=== PATIENT | male | born 1970 | race Caucasian/White ===

== ENCOUNTER 2022-09-01 08:18 | Outpatient (REF) | payer BC, SELFPAY ==
[2022-09-01 08:29] LABS: MANUAL DIFF FLAG NO
[2022-09-01 08:47] LABS: Basophils Percent Auto 0.2 % (0-2); Eosinophils Absolute Auto 0.3 X10*3/uL (0.0-0.4); Eosinophils Percent Auto 5.4 % (0-4); Hematocrit 42.1 % (42.0-52.0); Hemoglobin 15.2 g/dl (14.0-18.0); Imm Gran Abs Auto 0.02 X10*3/uL (0.00-0.03); Imm Gran Pct Auto 0.4 % (0.0-0.4); Lymphocytes Absolute Auto 1.1 X10*3/uL (1.2-4.9); Lymphocytes Percent Auto 21.1 % (20-40); Mean Corpuscular HGB Conc 36.1 g/dl (31.0-36.0); Mean Corpuscular Volume 94.2 fL (80.0-98.0); Mean Platelet Volume 9.4 fL (9.4-12.4); Monocytes Absolute Auto 0.3 X10*3/uL (0.1-1.2); Monocytes Percent Auto 6.3 % (2-11); Neutrophils Absolute Auto 3.6 x10*3/uL (2.0-8.3); Neutrophils Percent Auto 66.6 % (45-73); Platelet Count 158 X10*3/uL (160-400); Red Blood Count 4.47 X10*6/uL (4.60-5.80); Red Cell Distribution Width 11.8 % (11.0-16.0); White Blood Count 5.4 X10*3/uL (4.8-10.8)
[2022-09-01 09:19] LABS: Anion Gap 14 (12-20); Blood Urea Nitrogen 20 mg/dL (9-16); Calcium 9.5 mg/dL (8.4-10.2); Carbon Dioxide 26 mmol/L (22-29); Chloride 103 mmol/L (96-108); Estimated Glomerular Filt Rate 51; Glucose Random 131 mg/dL (60-115); Potassium 5.1 mmol/L (3.3-5.1); Sodium 138 mmol/L (135-145)
[2022-09-03 14:46] LABS: HIV RNA PCR Qn Copies <20 DETECTED copies/mL (NOT DETECTED); HIV RNA PCR Qn Log Copies <1.30 DETECTED (NOT DETECTED)
[2022-09-05 14:42] LABS: CK-BB None Detected (None Detected); CK-MB 0 % (<5); CK-MM 100 % (95-100); Creatine Kinase,Total,Serum 105 U/L (44-196)
== END 2022-09-01 08:19 | disposition home or self-care (01) ==
LOC: HO.LAB 08:18
PROVIDERS: Visit Provider Internal Medicine
DX: B20 Human immunodeficiency virus [HIV] disease (principal)
CPT/HCPCS: 36415; 80048; 82552; 85025; 87536

== ENCOUNTER → 2022-09-11 11:24 | Outpatient (BNVA) | payer BC, SELFPAY | PROVIDERS: Visit Provider Internal Medicine | DX: B20 Human immunodeficiency virus [HIV] disease (principal) | CPT/HCPCS: 96372 ==

== ENCOUNTER → 2022-10-14 10:35 | Outpatient (BNVA) | payer BC, SELFPAY | PROVIDERS: Visit Provider Internal Medicine | DX: B20 Human immunodeficiency virus [HIV] disease (principal) | CPT/HCPCS: 96372; J0741 ==

== ENCOUNTER 2022-10-20 08:15 | Outpatient (REF) | payer BC, SELFPAY ==
[2022-10-22 14:54] LABS: HIV RNA PCR Qn Copies NOT DETECTED copies/mL (NOT DETECTED); HIV RNA PCR Qn Log Copies NOT DETECTED (NOT DETECTED)
== END 2022-10-20 08:16 | disposition home or self-care (01) ==
LOC: HO.LAB 08:15
PROVIDERS: Visit Provider Internal Medicine
DX: B20 Human immunodeficiency virus [HIV] disease (principal)
CPT/HCPCS: 36415; 87536

== ENCOUNTER → 2022-12-16 10:53 | Outpatient (BNVA) | payer BC, SELFPAY | PROVIDERS: Visit Provider Internal Medicine | DX: B20 Human immunodeficiency virus [HIV] disease (principal) | CPT/HCPCS: 96372; J0741 ==

== ENCOUNTER 2023-01-18 09:18 | Outpatient (REF) | payer BC, SELFPAY ==
[2023-01-19 13:04] LABS: Absolute CD3 Count 769 cells/uL (840-3060); Absolute CD4 Count 168 cells/uL (490-1740); Absolute CD8 Count 600 cells/uL (180-1170); Absolute Lymphocytes 990 cells/uL (850-3900); CD4 CD8 Ratio 0.28 (0.86-5.00); Percent CD3 Cells 78 % (57-85); Percent CD4 Cells 17 % (30-61); Percent CD8 Cells 61 % (12-42)
[2023-01-20 14:54] LABS: HIV RNA PCR Qn Copies NOT DETECTED copies/mL (NOT DETECTED); HIV RNA PCR Qn Log Copies NOT DETECTED (NOT DETECTED)
== END 2023-01-18 09:19 | disposition home or self-care (01) ==
LOC: HO.LAB 09:18
PROVIDERS: Visit Provider Internal Medicine
DX: B20 Human immunodeficiency virus [HIV] disease (principal)
CPT/HCPCS: 36415; 86359; 86360; 87536

== ENCOUNTER → 2023-02-17 10:51 | Outpatient (BNVA) | payer BC, SELFPAY | PROVIDERS: Visit Provider Internal Medicine ==

== ENCOUNTER → 2023-02-22 14:27 | Outpatient (BNVA) | payer BC, SELFPAY | PROVIDERS: Visit Provider Internal Medicine | DX: B20 Human immunodeficiency virus [HIV] disease (principal) | CPT/HCPCS: 96372; J0741 ==

== ENCOUNTER → 2023-04-26 12:57 | Outpatient (BNVA) | payer BC, SELFPAY | PROVIDERS: Visit Provider Internal Medicine | DX: B20 Human immunodeficiency virus [HIV] disease (principal) | CPT/HCPCS: 96372; J0741 ==

== ENCOUNTER 2023-06-28 11:23 | Outpatient (AMB) | payer BC, SELFPAY ==
[2023-06-28 11:33] VITALS: BP 140/80; PULSE 108; O2SAT 98; BMI 24.3
--- NOTE | 2023-06-28 11:33 | A.OFFVIS_ITS ---
Intake Vital Signs 06/28/23 11:33 Height 5 ft 7 in Weight 155 lb BMI 24.3 BP 140/80 H Blood Pressure Location Lt brachial Position Sitting Pulse 108 H Pulse Source Pulse Oximeter Pulse Oximetry (%) 98 Intake Visit Reasons: 4 mth.F/U,Cabenuva inj. Allergies latex [LATEX] Allergy (Unknown, Verified 06/28/23 11:34) UNK penicillin G Allergy (Unknown, Verified 06/28/23 11:34) Unknown penicillin V Allergy (Unknown, Verified 06/28/23 11:34) Hives Penicillins [PENICILLINS] Allergy (Unknown, Verified 06/28/23 11:34) HIVES Latex Adverse Reaction (Unknown, Uncoded 08/04/22 11:42) Unknown HPI 4 mth.F/U,Cabenuva inj. HPI Details He is doing well. He has no complaints. He has CD4 count of 168 and viral load undetectable on 01/18/2023. [facility] Medical History H/O osteomyelitis Insomnia Chronic renal disease, stage 3, moderately decreased glomerular filtration rate (GFR) between 30-59 mL/min/1.73 square meter Thrombocytopenia Allergic sinusitis Asthma HIV (human immunodeficiency virus infection) Review of Systems Const All systems reviewed & are unremarkable except as noted in HPI and below Physical Exam Vital Signs: Last Vital Signs Pulse 108 H 06/28/23 11:33 BP 140/80 H 06/28/23 11:33 Pulse Ox 98 06/28/23 11:33 BMI result Body Mass Index 24.3 Const General: cooperative HEENT Head: Yes normal to inspection Face and sinus: Yes normal facial exam Mouth: Normal oral and palatal mucosa present Teeth and gingiva: dentition normal Eyes General: appearance normal, both eyes and all related structures Pupils: Equal, round and reactive pupils present Resp Effort & Inspection: normal respiratory effort Cardio Rate: regular rate Rhythm: regular rhythm GI Palpation (GI): Soft to palpation and nontender General: Yes no CVA tenderness Back/Spine/Pelvis Back: no CVA tenderness Skin General skin exam: no rashes or lesions noted Neuro General: moves all extremities Cranial nerves: Yes Equal, round and reactive pupils present Extrem General: Yes normal to inspection Psych Appearance: grossly normal Assessment & Plan Assessment & Plan (1) HIV (human immunodeficiency virus infection): Comment: He received his sixth Cabenuva today. He has no complaints His viral load is undetectable in January 2023. Code(s): B20 - Human immunodeficiency virus [HIV] disease Plan: Will check viral load today. See in four months and nurse visit in two months. Orders: Orders HIV-1 RNA QN PCR Expanded 06/28/23 B20 - Human immunodeficiency virus [HIV] disease Coding Level of Care Code Est Pt Level 3 (93355) Diagnoses HIV (human immunodeficiency virus infection) B20
== END 2023-06-28 13:06 | disposition home or self-care (01) ==
LOC: HO.HID 11:23
PROVIDERS: Visit Provider Internal Medicine
DX: B20 Human immunodeficiency virus [HIV] disease (principal)
CPT/HCPCS: 99213

== ENCOUNTER → 2023-06-28 11:23 | Outpatient (BNVA) | payer BC, SELFPAY | PROVIDERS: Visit Provider Internal Medicine ==

== ENCOUNTER 2023-08-11 10:08 | Outpatient (REF) | payer BC, SELFPAY ==
[2023-08-12 11:39] LABS: Absolute CD3 Count 1210 cells/uL (840-3060); Absolute CD4 Count 304 cells/uL (490-1740); Absolute CD8 Count 913 cells/uL (180-1170); Absolute Lymphocytes 1536 cells/uL (850-3900); CD4 CD8 Ratio 0.33 (0.86-5.00); Percent CD3 Cells 79 % (57-85); Percent CD4 Cells 20 % (30-61); Percent CD8 Cells 59 % (12-42)
[2023-08-13 16:29] LABS: HIV RNA PCR Qn Copies NOT DETECTED copies/mL (NOT DETECTED); HIV RNA PCR Qn Log Copies NOT DETECTED (NOT DETECTED)
== END 2023-08-11 10:09 | disposition home or self-care (01) ==
LOC: HO.LAB 10:08
PROVIDERS: Visit Provider Internal Medicine
DX: B20 Human immunodeficiency virus [HIV] disease (principal)
CPT/HCPCS: 36415; 86359; 86360; 87536

== ENCOUNTER 2023-08-30 10:58 | Outpatient (AMB) | payer BC, SELFPAY ==
[2023-08-30 11:08] VITALS: BP 149/91; PULSE 97; O2SAT 97; BMI 24.9
--- NOTE | 2023-08-30 11:08 | MHC.OFFVIS ---
Intake Vital Signs 08/30/23 11:08 Height 5 ft 7 in Weight 159 lb BMI 24.9 BP 149/91 H Blood Pressure Location Lt brachial Position Sitting Pulse 97 Pulse Source Pulse Oximeter Pulse Oximetry (%) 97 Intake Visit Reasons: 2 mth-Cabenuva injection Allergies latex [LATEX] Allergy (Unknown, Verified 08/30/23 11:09) UNK penicillin G Allergy (Unknown, Verified 08/30/23 11:09) Unknown penicillin V Allergy (Unknown, Verified 08/30/23 11:09) Hives Penicillins [PENICILLINS] Allergy (Unknown, Verified 08/30/23 11:09) HIVES Latex Adverse Reaction (Unknown, Uncoded 08/04/22 11:42) Unknown [facility] Medical History H/O osteomyelitis Insomnia Chronic renal disease, stage 3, moderately decreased glomerular filtration rate (GFR) between 30-59 mL/min/1.73 square meter Thrombocytopenia Allergic sinusitis Asthma HIV (human immunodeficiency virus infection) Physical Exam Vital Signs: Last Vital Signs Pulse 97 08/30/23 11:08 BP 149/91 H 08/30/23 11:08 Pulse Ox 97 08/30/23 11:08 BMI result Body Mass Index 24.9 Office Meds cabotegravir ER 600 mg/3 mL-rilpivirine ER 900 mg/3mL IM suspension,ER Performing Provider: Ana Hawkins MD Performing Location: [facility] [place] [facility] Administered by: Dafne Frankel on 08/30/23 11:51 Dose Route Admin Location Dispensed Lot Number Expiration Date [facility] Escrow Clerk 3 mL IM RGM 6 mL [id number] 04/09/25 08350-520-25 [facility] 3 mL IM LGM 6 mL [id number] 04/09/25 30190-330-50 [facility] Assessment & Plan Assessment & Plan (1) HIV (human immunodeficiency virus infection): Comment: He received his sixth Cabenuva today. He has no complaints His viral load is undetectable in January 2023. Code(s): B20 - Human immunodeficiency virus [HIV] disease Qualifiers: HIV symptom status: currently asymptomatic, with history of HIV-related illness Qualified Code(s): B20 - Human immunodeficiency virus [HIV] disease (2) Chronic renal disease, stage 3, moderately decreased glomerular filtration rate (GFR) between 30-59 mL/min/1.73 square meter: Code(s): N18.30 - Chronic kidney disease, stage 3 unspecified Qualifiers: Chronic kidney disease stage 3 subtype: unspecified whether 3a or 3b Qualified Code(s): N18.30 - Chronic kidney disease, stage 3 unspecified Orders: Orders AMB Cabotegravir/Rilpivirine Injection 08/30/23 B20 - Human immunodeficiency virus [HIV] disease Coding Diagnoses Currently asymptomatic HIV infection, with history of HIV-related illness B20 HIV symptom status: currently asymptomatic, with history of HIV-related illness Stage 3 chronic kidney disease, unspecified whether stage 3a or 3b CKD N18.30 Chronic kidney disease stage 3 subtype: unspecified whether 3a or 3b
== END 2023-08-30 12:11 | disposition home or self-care (01) ==
PROVIDERS: Visit Provider Internal Medicine
DX: B20 Human immunodeficiency virus [HIV] disease (principal)

== ENCOUNTER → 2023-08-30 10:58 | Outpatient (BNVA) | payer BC, SELFPAY | PROVIDERS: Visit Provider Internal Medicine | DX: B20 Human immunodeficiency virus [HIV] disease (principal); N18.30 Chronic kidney disease, stage 3 unspecified | CPT/HCPCS: 96372; J0741 ==

== ENCOUNTER 2023-11-01 10:50 | Outpatient (AMB) | payer BC, SELFPAY ==
[2023-11-01 11:05] VITALS: PULSE 88; O2SAT 99; BMI 24.7
--- NOTE | 2023-11-01 11:05 | MHC.OFFVIS ---
Intake Vital Signs 11/01/23 11:05 Height 5 ft 7 in Weight 158 lb BMI 24.7 Pulse 88 Pulse Source Pulse Oximeter Pulse Oximetry (%) 99 Intake Visit Reasons: F/U 4 mth visit Allergies latex [LATEX] Allergy (Unknown, Verified 11/01/23 11:10) UNK penicillin G Allergy (Unknown, Verified 11/01/23 11:10) Unknown penicillin V Allergy (Unknown, Verified 11/01/23 11:10) Hives Penicillins [PENICILLINS] Allergy (Unknown, Verified 11/01/23 11:10) HIVES Latex Adverse Reaction (Unknown, Uncoded 08/04/22 11:42) Unknown HPI F/U 4 mth visit HPI Details He is here for six month followup. He feels well. He had CD4 count 3-4 and viral load undetectable on 08/11. He is UTD with healthcare screening per PCP and has no complaints. [facility] Medical History H/O osteomyelitis Insomnia Chronic renal disease, stage 3, moderately decreased glomerular filtration rate (GFR) between 30-59 mL/min/1.73 square meter Thrombocytopenia Allergic sinusitis Asthma HIV (human immunodeficiency virus infection) Review of Systems Const All systems reviewed & are unremarkable except as noted in HPI and below Physical Exam Vital Signs: Last Vital Signs Pulse 88 11/01/23 11:05 Pulse Ox 99 11/01/23 11:05 BMI result Body Mass Index 24.7 Const General: cooperative Orientation/consciousness: patient oriented x3 HEENT Head: Yes normal to inspection Mouth: Normal oral and palatal mucosa present Eyes General: appearance normal, both eyes and all related structures Pupils: Equal, round and reactive pupils present Resp Effort & Inspection: normal respiratory effort Cardio Rate: regular rate Rhythm: regular rhythm GI Palpation (GI): Soft to palpation and nontender General: Yes no CVA tenderness Back/Spine/Pelvis Back: no CVA tenderness Skin General skin exam: no rashes or lesions noted Neuro General: patient oriented x3 Cranial nerves: Yes CN's II-XII intact bilaterally and Yes Equal, round and reactive pupils present Extrem General: Yes normal to inspection Psych Appearance: grossly normal Office Meds cabotegravir ER 600 mg/3 mL-rilpivirine ER 900 mg/3mL IM suspension,ER Performing Provider: Ana Hawkins MD Per[place] [facility] Administered by: Ana Hawkins MD on 11/01/23 15:12 Dose Route Admin Location Dispensed Lot Number Expiration Date [facility] [employer] 6 mL IM bilat ventrogluteal 6 mL [id number] 03/11/25 90576-946-00 [facility] [employer] Comments: left ventrogluteal cabotegravir injection -Cherie Frankel RN right rilpivirine ventrogluteal injection-Maci Hawkins MD Assessment & Plan Assessment & Plan (1) HIV (human immunodeficiency virus infection): Comment: He has no complaints He has viral load undetectable and CD4 count 301 on 08/11. Code(s): B20 - Human immunodeficiency virus [HIV] disease Qualifiers: HIV symptom status: currently asymptomatic, with history of HIV-related illness Qualified Code(s): B20 - Human immunodeficiency virus [HIV] disease Plan: Continue Cabenuva every two months with nurse visits. Labs early February 2024. See in April 2024. Orders: Orders Syphilis Screen 4 Months B20 - Human immunodeficiency virus [HIV] disease AMB Cabotegravir/Rilpivirine Injection - Patient Supplied Today B20 - Human immunodeficiency virus [HIV] disease HIV-1 RNA QN PCR Expanded 4 Months B20 - Human immunodeficiency virus [HIV] disease Lymphocyte Subset Panel 3 4 Months B20 - Human immunodeficiency virus [HIV] disease Hepatitis C Antibody 4 Months B20 - Human immunodeficiency virus [HIV] disease Coding Level of Care Code Est Pt Level 4 (52342) Diagnoses Currently asymptomatic HIV infection, with history of HIV-related illness B20 HIV symptom status: currently asymptomatic, with history of HIV-related illness
== END 2023-11-01 13:01 | disposition home or self-care (01) ==
PROVIDERS: Visit Provider Internal Medicine
DX: B20 Human immunodeficiency virus [HIV] disease (principal)
CPT/HCPCS: 99214

== ENCOUNTER → 2023-11-01 10:50 | Outpatient (BNVA) | payer BC, SELFPAY | PROVIDERS: Visit Provider Internal Medicine | DX: B20 Human immunodeficiency virus [HIV] disease (principal) | CPT/HCPCS: 96372; J0741 ==

== ENCOUNTER 2023-12-31 14:21 | Outpatient (AMB) | payer BC, SELFPAY ==
[2023-12-31 14:20] VITALS: BP 113/73; PULSE 90; O2SAT 96; BMI 23.8
--- NOTE | 2023-12-31 14:20 | AM.OFFVISNUR ---
Intake Vital Signs 12/31/23 14:20 Height 5 ft 7 in Weight 68.946 kg BMI 23.8 BP 113/73 Blood Pressure Location Lt brachial Position Sitting Pulse 90 Pulse Source Pulse Oximeter Pulse Oximetry (%) 96 Intake Visit Reasons: cabenuva Allergies latex [LATEX] Allergy (Unknown, Verified 12/31/23 14:21) UNK penicillin G Allergy (Unknown, Verified 12/31/23 14:21) Unknown penicillin V Allergy (Unknown, Verified 12/31/23 14:21) Hives Penicillins [PENICILLINS] Allergy (Unknown, Verified 12/31/23 14:21) HIVES Latex Adverse Reaction (Unknown, Uncoded 08/04/22 11:42) Unknown Coding
== END 2023-12-31 18:25 ==
PROVIDERS: Visit Provider Internal Medicine
DX: B20 Human immunodeficiency virus [HIV] disease (principal)

== ENCOUNTER → 2023-12-31 14:21 | Outpatient (BNVA) | payer BC, SELFPAY | PROVIDERS: Visit Provider Internal Medicine | DX: B20 Human immunodeficiency virus [HIV] disease (principal) | CPT/HCPCS: 96372; J0741 ==

== ENCOUNTER 2024-02-21 07:06 | Outpatient (REF) | payer BC, SELFPAY ==
[2024-02-21 09:11] LABS: Syphilis Screen Nonreactive (Nonreactive); ~HepC Num1 0.15 S/CO (0.00-0.79); ~Hepatitis C Antibody Nonreactive (Nonreactive)
[2024-02-23 07:03] LABS: Absolute CD3 Count 796 cells/uL (840-3060); Absolute CD4 Count 159 cells/uL (490-1740); Absolute CD8 Count 635 cells/uL (180-1170); Absolute Lymphocytes 1126 cells/uL (850-3900); CD4 CD8 Ratio 0.25 (0.86-5.00); Percent CD3 Cells 71 % (57-85); Percent CD4 Cells 14 % (30-61); Percent CD8 Cells 56 % (12-42)
[2024-02-24 04:08] LABS: HIV RNA PCR Qn Copies NOT DETECTED copies/mL (NOT DETECTED); HIV RNA PCR Qn Log Copies NOT DETECTED (NOT DETECTED)
== END 2024-02-21 07:07 | disposition home or self-care (01) ==
LOC: HO.LAB 07:06
PROVIDERS: Visit Provider Internal Medicine
DX: B20 Human immunodeficiency virus [HIV] disease (principal)
CPT/HCPCS: 36415; 86359; 86360; 86780; 86803; 87536

== ENCOUNTER 2024-02-28 11:28 | Outpatient (AMB) | payer BC, SELFPAY ==
[2024-02-28 11:44] VITALS: BP 132/88; PULSE 107; O2SAT 98; BMI 23.4
--- NOTE | 2024-02-28 11:44 | AM.OFFVISNUR ---
Intake Vital Signs 02/28/24 11:44 Height 5 ft 7 in Weight 67.755 kg BMI 23.4 BP 132/88 Blood Pressure Location Rt brachial Position Sitting Pulse 107 H Pulse Source Pulse Oximeter Pulse Oximetry (%) 98 Oxygen Delivery Method Room Air Intake Visit Reasons: Cabenuva Allergies latex [LATEX] Allergy (Unknown, Verified 02/28/24 11:45) UNK penicillin G Allergy (Unknown, Verified 02/28/24 11:45) Unknown penicillin V Allergy (Unknown, Verified 02/28/24 11:45) Hives Penicillins [PENICILLINS] Allergy (Unknown, Verified 02/28/24 11:45) HIVES Latex Adverse Reaction (Unknown, Uncoded 08/04/22 11:42) Unknown Coding
== END 2024-02-28 12:00 | disposition home or self-care (01) ==
PROVIDERS: Visit Provider Internal Medicine
DX: B20 Human immunodeficiency virus [HIV] disease (principal)

== ENCOUNTER → 2024-02-28 11:28 | Outpatient (BNVA) | payer BC, SELFPAY | PROVIDERS: Visit Provider Internal Medicine | DX: B20 Human immunodeficiency virus [HIV] disease (principal) | CPT/HCPCS: 96372; J0741 ==

== ENCOUNTER 2024-04-26 13:30 | Outpatient (AMB) | payer BC, SELFPAY ==
--- NOTE | 2024-04-26 13:29 | A.OFFVIS_ITS ---
Vital Signs 04/26/24 13:39 Height 5 ft 7 in Weight 149 lb BMI 23.3 BP 110/80 Blood Pressure Location Lt brachial Position Sitting Pulse 106 H Pulse Source Pulse Oximeter Pulse Oximetry (%) 97 Oxygen Delivery Method Room Air Intake Visit Reasons: HIV labs/cabenuva shot Allergies latex [LATEX] Allergy (Unknown, Verified 04/26/24 13:57) UNK penicillin G Allergy (Unknown, Verified 04/26/24 13:57) Unknown penicillin V Allergy (Unknown, Verified 04/26/24 13:57) Hives Penicillins [PENICILLINS] Allergy (Unknown, Verified 04/26/24 13:57) HIVES Latex Adverse Reaction (Unknown, Uncoded 08/04/22 11:42) Unknown HPI HPI HIV labs/cabenuva shot: Details: He luna solerated shot well. He has had levels undetectable He should come back in six month with labs befor [facility] Medical History H/O osteomyelitis Insomnia Chronic renal disease, stage 3, moderately decreased glomerular filtration rate (GFR) between 30-59 mL/min/1.73 square meter Thrombocytopenia Allergic sinusitis Asthma HIV (human immunodeficiency virus infection) Physical Exam Vital Signs: Last Vital Signs Pulse 106 H 04/26/24 13:39 BP 110/80 04/26/24 13:39 Pulse Ox 97 04/26/24 13:39 Oxygen Delivery Method Room Air 04/26/24 13:39 BMI result Body Mass Index 23.3 Office Meds cabotegravir ER 600 mg/3 mL-rilpivirine ER 900 mg/3mL IM suspension,ER Performing Provider: Ana Hawkins MD Performing Location: [facility] [place] [facility] Administered by: Ana Hawkins MD on 04/26/24 14:10 Dose Route Admin Location Dispensed Lot Number Expiration Date [facility] Network Announcer 6 mL IM ventrogluteal 6 mL [id number] 03/11/26 77528-886-02 [facility] [employer] Comments: Cherie FrankelRN left cabotegravir Ana Hawkins MD,right rilpivirine Assessment & Plan Assessment & Plan (1) HIV (human immunodeficiency virus infection): Comment: He has no complaints He has viral load undetectable. Code(s): B20 - Human immunodeficiency virus [HIV] disease Category: Medical Qualifiers: HIV symptom status: currently asymptomatic, with history of HIV-related illness Qualified Code(s): B20 - Human immunodeficiency virus [HIV] disease Plan: See in October 2024. In meantime nurse visits. Check CD4 count and viral load in six months Consider rectal Pap next visit. Orders: Orders Lymphocyte Subset Panel 3 4 Months B20 - Human immunodeficiency virus [HIV] disease Hepatitis C Antibody 4 Months B20 - Human immunodeficiency virus [HIV] disease HIV-1 RNA QN PCR Expanded 4 Months B20 - Human immunodeficiency virus [HIV] disease Syphilis Screen 4 Months B20 - Human immunodeficiency virus [HIV] disease AMB Cabotegravir/Rilpivirine Injection - Patient Supplied 04/26/24 B20 - Human immunodeficiency virus [HIV] disease Coding Level of Care Code Est Pt Level 3 (15070) Diagnoses Currently asymptomatic HIV infection, with history of HIV-related illness B20 HIV symptom status: currently asymptomatic, with history of HIV-related illness
[2024-04-26 13:39] VITALS: BP 110/80; PULSE 106; O2SAT 97; BMI 23.3
== END 2024-04-26 14:15 | disposition home or self-care (01) ==
LOC: HO.HID 13:30
PROVIDERS: Visit Provider Internal Medicine
DX: B20 Human immunodeficiency virus [HIV] disease (principal)
CPT/HCPCS: 99213

== ENCOUNTER → 2024-04-26 13:30 | Outpatient (BNVA) | payer BC, SELFPAY | PROVIDERS: Visit Provider Internal Medicine | DX: B20 Human immunodeficiency virus [HIV] disease (principal) | CPT/HCPCS: 96372; J0741 ==

== ENCOUNTER 2024-06-26 13:44 | Outpatient (AMB) | payer BC, SELFPAY ==
--- NOTE | 2024-06-26 14:20 | AM.OFFVISNUR ---
Intake Visit Reasons: Cabenuva inj. Allergies latex [LATEX] Allergy (Unknown, Verified 04/26/24 13:57) UNK penicillin G Allergy (Unknown, Verified 04/26/24 13:57) Unknown penicillin V Allergy (Unknown, Verified 04/26/24 13:57) Hives Penicillins [PENICILLINS] Allergy (Unknown, Verified 04/26/24 13:57) HIVES Latex Adverse Reaction (Unknown, Uncoded 08/04/22 11:42) Unknown Nursing Note Taran is here for scheduled Cabenuva injection. No c/o. Pt tolerated injection well. He will schedule his next injection in 2 months. Pt verbalizes understanding and agrees with plan. No further questions. Office Meds cabotegravir ER 600 mg/3 mL-rilpivirine ER 900 mg/3mL IM suspension,ER Performing Provider: Ana Hawkins MD Per[place] [facility] [place] [facility] Administered by: Dafne Frankel on 06/26/24 14:35 Dose Route Admin Location Dispensed Lot Number Expiration Date [facility] Anaesthesiologist 6 mL IM 6 mL [id number] 04/09/26 58960-997-68 [facility] Assessment & Plan Assessment & Plan (1) HIV (human immunodeficiency virus infection): Comment: He has no complaints He has viral load undetectable. Code(s): B20 - Human immunodeficiency virus [HIV] disease Category: Medical Qualifiers: HIV symptom status: currently asymptomatic, with history of HIV-related illness Qualified Code(s): B20 - Human immunodeficiency virus [HIV] disease Orders: Orders AMB Cabotegravir/Rilpivirine Injection Today B20 - Human immunodeficiency virus [HIV] disease Medications: New cabotegravir-rilpivirine 600 mg/3 mL- 900 mg/3 mL ER 6 mL IM ONCE 6 mL 0RF B20 - Human immunodeficiency virus [HIV] disease
== END 2024-06-26 14:19 | disposition home or self-care (01) ==
LOC: HO.HID 13:44
PROVIDERS: Visit Provider Internal Medicine
DX: B20 Human immunodeficiency virus [HIV] disease (principal)

== ENCOUNTER → 2024-06-26 13:44 | Outpatient (BNVA) | payer BC, SELFPAY | PROVIDERS: Visit Provider Internal Medicine | DX: B20 Human immunodeficiency virus [HIV] disease (principal) | CPT/HCPCS: 96372; 99211; J0741 ==

== ENCOUNTER 2024-08-28 13:53 | Outpatient (AMB) | payer BC, SELFPAY ==
[2024-08-28 14:07] VITALS: BP 119/60; PULSE 96; O2SAT 96; BMI 23.2
--- NOTE | 2024-08-28 14:07 | AM.OFFVISNUR ---
Vital Signs 08/28/24 14:07 Height 5 ft 7 in Weight 67.132 kg BMI 23.2 BP 119/60 Blood Pressure Location Lt brachial Pulse 96 Pulse Source Pulse Oximeter Pulse Oximetry (%) 96 Oxygen Delivery Method Room Air Intake Visit Reasons: Cabanuva Allergies latex [LATEX] Allergy (Unknown, Verified 08/28/24 14:08) UNK penicillin G Allergy (Unknown, Verified 08/28/24 14:08) Unknown penicillin V Allergy (Unknown, Verified 08/28/24 14:08) Hives Penicillins [PENICILLINS] Allergy (Unknown, Verified 08/28/24 14:08) HIVES Latex Adverse Reaction (Unknown, Uncoded 08/04/22 11:42) Unknown
== END 2024-08-28 15:28 | disposition home or self-care (01) ==
PROVIDERS: Visit Provider Internal Medicine
DX: B20 Human immunodeficiency virus [HIV] disease (principal)

== ENCOUNTER → 2024-08-28 13:53 | Outpatient (BNVA) | payer BC, SELFPAY | PROVIDERS: Visit Provider Internal Medicine | DX: B20 Human immunodeficiency virus [HIV] disease (principal) | CPT/HCPCS: 96372; J0741 ==

== ENCOUNTER 2024-10-10 09:22 | Outpatient (REF) | payer BC, SELFPAY ==
[2024-10-10 12:03] LABS: ~HepC Num1 0.16 S/CO (0.00-0.79); ~Hepatitis C Antibody Nonreactive (Nonreactive)
[2024-10-10 12:14] LABS: Syphilis Screen Nonreactive (Nonreactive)
[2024-10-11 13:13] LABS: HIV RNA PCR Qn Copies NOT DETECTED copies/mL (NOT DETECTED); HIV RNA PCR Qn Log Copies NOT DETECTED (NOT DETECTED)
[2024-10-13 00:38] LABS: Absolute CD3 Count 963 cells/uL (840-3060); Absolute CD4 Count 230 cells/uL (490-1740); Absolute CD8 Count 746 cells/uL (180-1170); Absolute Lymphocytes 1192 cells/uL (850-3900); CD4 CD8 Ratio 0.31 (0.86-5.00); Percent CD3 Cells 81 % (57-85); Percent CD4 Cells 19 % (30-61); Percent CD8 Cells 63 % (12-42)
== END 2024-10-10 09:23 | disposition home or self-care (01) ==
LOC: HO.LAB 09:22
PROVIDERS: Visit Provider Internal Medicine
DX: B20 Human immunodeficiency virus [HIV] disease (principal)
CPT/HCPCS: 36415; 86359; 86360; 86780; 86803; 87536

== ENCOUNTER 2024-10-25 13:04 | Outpatient (AMB) | payer BC, SELFPAY ==
[2024-10-25 13:05] VITALS: PULSE 104; O2SAT 96; BMI 24.0
--- NOTE | 2024-10-25 13:05 | MHC.OFFVIS ---
Vital Signs 10/25/24 13:05 Height 5 ft 7 in Weight 153 lb BMI 24.0 Pulse 104 H Pulse Source Pulse Oximeter Pulse Oximetry (%) 96 Oxygen Delivery Method Room Air Intake Visit Reasons: 6 mth, HIV,f/u Allergies latex [LATEX] Allergy (Unknown, Verified 10/25/24 13:10) UNK penicillin G Allergy (Unknown, Verified 10/25/24 13:10) Unknown penicillin V Allergy (Unknown, Verified 10/25/24 13:10) Hives Penicillins [PENICILLINS] Allergy (Unknown, Verified 10/25/24 13:10) HIVES Latex Adverse Reaction (Unknown, Uncoded 08/04/22 11:42) Unknown [facility] Medical History H/O osteomyelitis Insomnia Chronic renal disease, stage 3, moderately decreased glomerular filtration rate (GFR) between 30-59 mL/min/1.73 square meter Thrombocytopenia Allergic sinusitis Asthma HIV (human immunodeficiency virus infection) Physical Exam Vital Signs: Last Vital Signs Pulse 104 H 10/25/24 13:05 Pulse Ox 96 10/25/24 13:05 Oxygen Delivery Method Room Air 10/25/24 13:05 BMI result Body Mass Index 24.0 Office Meds cabotegravir ER 600 mg/3 mL-rilpivirine ER 900 mg/3mL IM suspension,ER Performing Provider: Ana Hawkins MD Performing Location: [facility] [place] [facility] Administered by: Ana Hawkins MD on 10/25/24 14:06 Dose Route Admin Location Dispensed Lot Number Expiration Date [facility] Top Inventory Control Executive 6 mL IM 6 mL [id number] 07/11/26 72504-179-97 [facility] Comments: Maci Hawkins MD right buttock ,rilrina Frankel RN left buttock cabotegravir Assessment & Plan Assessment & Plan (1) HIV (human immunodeficiency virus infection): Comment: He has no complaints He has viral load undetectable. Code(s): B20 - Human immunodeficiency virus [HIV] disease Category: Medical Qualifiers: HIV symptom status: currently asymptomatic, with history of HIV-related illness Qualified Code(s): B20 - Human immunodeficiency virus [HIV] disease Orders: Orders Pap Smear Today B20 - Human immunodeficiency virus [HIV] disease AMB Cabotegravir/Rilpivirine Injection - Patient Supplied Today B20 - Human immunodeficiency virus [HIV] disease Medications: New cabotegravir-rilpivirine 600 mg/3 mL- 900 mg/3 mL ER CABOTEGRAVIR: Inject 3 mL (600 mg) intramuscularly every 2 months; RILPIVIRINE: Inject 3 mL (900 mg) intramuscularly every 2 months IM 60 days 6 mL 0RF cabotegravir-rilpivirine 600 mg/3 mL- 900 mg/3 mL ER CABOTEGRAVIR: Inject 3 mL (600 mg) intramuscularly every 2 months; RILPIVIRINE: Inject 3 mL (900 mg) intramuscularly every 2 months IM 60 days 6 mL 6RF cabotegravir-rilpivirine 600 mg/3 mL- 900 mg/3 mL ER CABOTEGRAVIR: Inject 3 mL (600 mg) intramuscularly every 2 months; RILPIVIRINE: Inject 3 mL (900 mg) intramuscularly every 2 months IM 60 days 6 mL 6RF Refilled cabotegravir-rilpivirine 600 mg/3 mL- 900 mg/3 mL ER (Cabenuva) CABOTEGRAVIR: Inject 3 mL (600 mg) intramuscularly every other month ; RILPIVIRINE: Inject 3 mL (900 mg) intramuscularly every other month IM 6 mL 6RF Coding Diagnoses Currently asymptomatic HIV infection, with history of HIV-related illness B20 HIV symptom status: currently asymptomatic, with history of HIV-related illness
== END 2024-10-25 14:26 | disposition home or self-care (01) ==
PROVIDERS: Visit Provider Internal Medicine
DX: B20 Human immunodeficiency virus [HIV] disease (principal)

== ENCOUNTER 2024-10-25 13:04 | Outpatient (REF) | payer BC, SELFPAY ==
[2024-11-01 21:43] LABS: HPV MRNA E6/E7 Rectal NOT DETECTED
== END 2024-10-25 13:05 | disposition home or self-care (01) ==
LOC: HO.LNP 13:04
PROVIDERS: Visit Provider Internal Medicine
DX: B20 Human immunodeficiency virus [HIV] disease (principal); Z79.899 Other long term (current) drug therapy
CPT/HCPCS: 87624; 88112; 96372; J0741

== ENCOUNTER 2024-12-20 13:01 | Outpatient (AMB) | payer BC, SELFPAY ==
--- NOTE | 2024-12-20 12:59 | AM.OFFVISNUR ---
Vital Signs 12/20/24 13:11 Height 5 ft 7 in Weight 154 lb BMI 24.1 BP 110/80 Blood Pressure Location Lt brachial Position Sitting Pulse 98 Pulse Source Pulse Oximeter Pulse Oximetry (%) 98 Oxygen Delivery Method Room Air Intake Visit Reasons: cabenuva shot Allergies latex [LATEX] Allergy (Unknown, Verified 12/20/24 13:11) UNK penicillin G Allergy (Unknown, Verified 12/20/24 13:11) Unknown penicillin V Allergy (Unknown, Verified 12/20/24 13:11) Hives Penicillins [PENICILLINS] Allergy (Unknown, Verified 12/20/24 13:11) HIVES Latex Adverse Reaction (Unknown, Uncoded 08/04/22 11:42) Unknown Nursing Note Patient Presents for Cabenuva Injection. Current Dose 600mg/3ml of Cabotegravir co packaged with Rilpivirine 900mg/3ml. Given in the with R and L Glute no noted or stated complications. Denies any issues with previous injection. Office Meds cabotegravir ER 600 mg/3 mL-rilpivirine ER 900 mg/3mL IM suspension,ER Performing Provider: Ana Hawkins MD Performing Location: [facility] [place] [facility] Administered by: Amarilis Richard RN on 12/20/24 14:05 Dose Route Admin Location Dispensed Lot Number Expiration Date [facility] Patient Companion 6 mL IM RG/LG 6 mL [id number] 07/11/26 88414-643-34 [facility] Assessment & Plan Assessment & Plan Orders: Orders AMB Cabotegravir/Rilpivirine Injection - Patient Supplied Today B20 - Human immunodeficiency virus [HIV] disease Medications: New cabotegravir-rilpivirine 600 mg/3 mL- 900 mg/3 mL ER 6 mL IM ONCE 6 mL 0RF B20 - Human immunodeficiency virus [HIV] disease Coding
[2024-12-20 13:11] VITALS: BP 110/80; PULSE 98; O2SAT 98; BMI 24.1
--- OUTSIDE RECORDS SUMMARY | 2024-12-20 15:11 | XMS_ITS ---
Author Name [facility] Organization Unknown Care Team Organization Name Specialty Phone Email Start Date End [facility] te [facility] of the Control Technician ([facility]) 08/25/2024
== END 2024-12-20 14:44 | disposition home or self-care (01) ==
LOC: HO.HID 13:01
PROVIDERS: Visit Provider Internal Medicine
DX: B20 Human immunodeficiency virus [HIV] disease (principal)

== ENCOUNTER → 2024-12-20 13:01 | Outpatient (BNVA) | payer BC, SELFPAY | PROVIDERS: Visit Provider Internal Medicine | DX: B20 Human immunodeficiency virus [HIV] disease (principal) | CPT/HCPCS: 96372; J0741 ==

== ENCOUNTER → 2025-02-19 12:57 | Outpatient (AMB) | payer BC, SELFPAY ==
[2025-02-19 14:00] VITALS: BP 132/76; PULSE 97; O2SAT 99
--- NOTE | 2025-02-19 14:00 | AM.OFFVISNUR ---
Vital Signs 02/19/25 14:00 BP 132/76 Blood Pressure Location Rt brachial Position Sitting Pulse 97 Pulse Source Pulse Oximeter Pulse Oximetry (%) 99 Oxygen Delivery Method Room Air Intake Visit Reasons: Cabenuva shot Allergies latex [LATEX] Allergy (Unknown, Verified 12/20/24 13:11) UNK penicillin G Allergy (Unknown, Verified 12/20/24 13:11) Unknown penicillin V Allergy (Unknown, Verified 12/20/24 13:11) Hives Penicillins [PENICILLINS] Allergy (Unknown, Verified 12/20/24 13:11) HIVES Latex Adverse Reaction (Unknown, Uncoded 08/04/22 11:42) Unknown Office Meds cabotegravir ER 600 mg/3 mL-rilpivirine ER 900 mg/3mL IM suspension,ER Performing Provider: Ana Hawikns MD Performing Location: [facility] Administered by: Lizette Vela RN on 02/19/25 14:32 Dose Route Admin Location Dispensed Lot Number Expiration Date [facility] Slip Box Changer 6 mL IM RG/LG 6 mL [id number] 05/10/27 45503-609-30 [facility] Comments: Pt present for Bi-monthly injection, tolerated injections well. Pt reports no issues with previous injection and will follow up with the office if any questions or concerns arise. Follow up appt made in 2 months Assessment & Plan Assessment & Plan Orders: Orders AMB Cabotegravir/Rilpivirine Injection - Patient Supplied Today B20 - Human immunodeficiency virus [HIV] disease Coding
--- NOTE | 2025-02-19 14:02 | AM.OFFVISNUR ---
Vital Signs 02/19/25 14:00 BP 132/76 Blood Pressure Location Rt brachial Position Sitting Pulse 97 Pulse Source Pulse Oximeter Pulse Oximetry (%) 99 Oxygen Delivery Method Room Air Intake Visit Reasons: Cabenuva shot Allergies latex [LATEX] Allergy (Unknown, Verified 12/20/24 13:11) UNK penicillin G Allergy (Unknown, Verified 12/20/24 13:11) Unknown penicillin V Allergy (Unknown, Verified 12/20/24 13:11) Hives Penicillins [PENICILLINS] Allergy (Unknown, Verified 12/20/24 13:11) HIVES Latex Adverse Reaction (Unknown, Uncoded 08/04/22 11:42) Unknown Office Meds cabotegravir ER 600 mg/3 mL-rilpivirine ER 900 mg/3mL IM suspension,ER Performing Provider: Ana Hawkins MD Performing Location: [facility] Administered by: Lizette Vela RN on 02/19/25 14:32 Dose Route Admin Location Dispensed Lot Number Expiration Date [facility] Magnetic Tape Typewriter Operator 6 mL IM RG/LG 6 mL [id number] 05/10/27 40990-841-64 [facility] Comments: Pt present for Bi-monthly injection, tolerated injections well. Pt reports no issues with previous injection and will follow up with the office if any questions or concerns arise. Follow up appt made in 2 months Assessment & Plan Assessment & Plan Orders: Orders AMB Cabotegravir/Rilpivirine Injection - Patient Supplied Today B20 - Human immunodeficiency virus [HIV] disease Medications: New cabotegravir-rilpivirine 600 mg/3 mL- 900 mg/3 mL ER 6 mL IM ONCE 6 mL 0RF B20 - Human immunodeficiency virus [HIV] disease Coding
== END ==
LOC: HO.HID 12:57
PROVIDERS: Visit Provider Internal Medicine
DX: B20 Human immunodeficiency virus [HIV] disease (principal)

== ENCOUNTER → 2025-02-19 12:57 | Outpatient (BNVA) | payer BC, SELFPAY | PROVIDERS: Visit Provider Internal Medicine | DX: B20 Human immunodeficiency virus [HIV] disease (principal) | CPT/HCPCS: 96372; J0741 ==

== ENCOUNTER 2025-04-24 08:23 | Outpatient (REF) | payer BC, SELFPAY ==
[2025-04-24 12:13] LABS: Syphilis Screen Nonreactive (Nonreactive)
[2025-04-26 14:48] LABS: HIV RNA PCR Qn Copies NOT DETECTED copies/mL (NOT DETECTED); HIV RNA PCR Qn Log Copies NOT DETECTED (NOT DETECTED)
[2025-04-27 20:23] LABS: Absolute CD3 Count 819 cells/uL (840-3060); Absolute CD8 Count 607 cells/uL (180-1170); Percent CD3 Cells 80 % (57-85); Percent CD8 Cells 61 % (12-42)
== END 2025-04-24 08:24 | disposition home or self-care (01) ==
LOC: HO.WFDLDS 08:23
PROVIDERS: Visit Provider Internal Medicine
DX: B20 Human immunodeficiency virus [HIV] disease (principal)
CPT/HCPCS: 36415; 86359; 86360; 86780; 87536

== ENCOUNTER 2025-04-30 08:53 | Outpatient (AMB) | payer BC, SELFPAY ==
--- OUTSIDE RECORDS SUMMARY | 2025-04-30 09:03 | XMS_ITS ---
Author Name [facility] Organization Unknown Care Team Organization Name Specialty Phone Email Start Date End [facility] 08/25/2024
[2025-04-30 09:11] VITALS: BP 122/80; PULSE 100; O2SAT 96; BMI 22.9
--- NOTE | 2025-04-30 09:11 | AM.OFFVISNUR ---
Vital Signs 04/30/25 09:11 Height 5 ft 7 in Weight 66.224 kg BMI 22.9 BP 122/80 Pulse 100 Pulse Oximetry (%) 96 Intake Visit Reasons: Cabenuva Shot/9:45am Allergies latex (LATEX) Allergy (Unknown, Verified 12/20/24 13:11) UNK penicillin G Allergy (Unknown, Verified 12/20/24 13:11) Unknown penicillin V Allergy (Unknown, Verified 12/20/24 13:11) Hives Penicillins (PENICILLINS) Allergy (Unknown, Verified 12/20/24 13:11) HIVES Latex Adverse Reaction (Unknown, Uncoded 08/04/22 11:42) Unknown Nursing Note Taran is here for Bi-monthly Cabenuva Injection, Current Dose 600mg/3ml of Cabotegravir packaged with Rilpivirine 900mg/3ml. Taran is alert and oriented and presents with appropriate affect. No issues reported with prior injections, pt tolerated injections well. Follow up in 2 months for next injections. Office Meds cabotegravir ER 600 mg/3 mL-rilpivirine ER 900 mg/3mL IM suspension,ER Performing Provider: Ana Hawkins MD Performing Location: [facility] Administered by: Lizette Vela RN on 04/30/25 09:31 Dose Route Admin Location Dispensed Lot Number Expiration Date [facility] Child Welfare Counselor 6 mL IM RG/LG 6 mL [id number] 12/08/26 76319-902-67 [employer] Total Dispensed Waste 6 mL 0 % Comments: Patient Presents for Cabenuva Injection. No issues reported with previous injections and tolerated injections well, Pt educated on signs and symptoms of infection and urged to call the office if there are any questions or concerns. Pt verbalized understanding. Assessment & Plan Assessment & Plan Orders: Orders AMB Cabotegravir/Rilpivirine Injection - Patient Supplied Today B20 - Human immunodeficiency virus [HIV] disease Coding
== END 2025-04-30 09:47 | disposition home or self-care (01) ==
LOC: HO.HID 08:53
DX: B20 Human immunodeficiency virus [HIV] disease (principal)

== ENCOUNTER → 2025-04-30 08:53 | Outpatient (BNVA) | payer BC, SELFPAY | DX: B20 Human immunodeficiency virus [HIV] disease (principal) | CPT/HCPCS: 96372; J0741 ==

== ENCOUNTER 2025-05-07 09:19 | Outpatient (AMB) | payer BC, SELFPAY ==
--- NOTE | 2025-05-07 09:24 | A.OFFVIS_ITS ---
Vital Signs 05/07/25 09:25 Height 5 ft 7 in Weight 142 lb BMI 22.2 Pulse 93 Pulse Source Pulse Oximeter Pulse Oximetry (%) 98 Intake Visit Reasons: 6 month HIV follow up Allergies latex (LATEX) Allergy (Unknown, Verified 05/07/25 09:28) UNK penicillin G Allergy (Unknown, Verified 05/07/25 09:28) Unknown penicillin V Allergy (Unknown, Verified 05/07/25 09:28) Hives Penicillins (PENICILLINS) Allergy (Unknown, Verified 05/07/25 09:28) HIVES Latex Adverse Reaction (Unknown, Uncoded 08/04/22 11:42) Unknown HPI HPI 6 month HIV follow up: Details: He is doing well with viral load undetectable and CD4 count 887 on 04/24. He has some family history of CKD and is getting this checked. He likes Cabenuva. [facility] Medical History H/O osteomyelitis Insomnia Chronic renal disease, stage 3, moderately decreased glomerular filtration rate (GFR) between 30-59 mL/min/1.73 square meter Thrombocytopenia Allergic sinusitis Asthma HIV (human immunodeficiency virus infection) Review of Systems Const All systems reviewed & are unremarkable except as noted in HPI and below Physical Exam Vital Signs: Last Vital Signs Pulse 93 05/07/25 09:25 Pulse Ox 98 05/07/25 09:25 BMI result Body Mass Index 22.2 Const General: cooperative Orientation/consciousness: patient oriented x3 HEENT Head: Yes normal to inspection Mouth: Normal oral and palatal mucosa present Eyes General: appearance normal, both eyes and all related structures Pupils: Equal, round and reactive pupils present Resp Effort & Inspection: normal respiratory effort Cardio Rate: regular rate Rhythm: regular rhythm GI Palpation (GI): Soft to palpation and nontender General: Yes no CVA tenderness Back/Spine/Pelvis Back: no CVA tenderness Skin General skin exam: no rashes or lesions noted Neuro General: patient oriented x3 Cranial nerves: Yes CN's II-XII intact bilaterally and Yes Equal, round and reactive pupils present Extrem General: Yes normal to inspection Psych Appearance: grossly normal Assessment & Plan Assessment & Plan (1) HIV (human immunodeficiency virus infection): Comment: He has no complaints He has viral load undetectable. Code(s): B20 - Human immunodeficiency virus [HIV] disease Category: Medical Qualifiers: HIV symptom status: currently asymptomatic, with history of HIV-related illness Qualified Code(s): B20 - Human immunodeficiency virus [HIV] disease Plan: Continue Cabenuva. Check labs in six months and med refilled today. Follow GFR. Coding Level of Care Code Est Pt Level 4 (16506) Diagnoses Currently asymptomatic HIV infection, with history of HIV-related illness B20 HIV symptom status: currently asymptomatic, with history of HIV-related illness
[2025-05-07 09:25] VITALS: PULSE 93; O2SAT 98; BMI 22.2
== END 2025-05-07 10:04 | disposition home or self-care (01) ==
LOC: HO.HID 09:19
PROVIDERS: Visit Provider Internal Medicine
DX: B20 Human immunodeficiency virus [HIV] disease (principal)
CPT/HCPCS: 99214

== ENCOUNTER 2025-06-27 08:54 | Outpatient (AMB) | payer BC, SELFPAY ==
[2025-06-27 09:02] VITALS: BP 142/80; PULSE 93; O2SAT 99; BMI 22.4
--- NOTE | 2025-06-27 09:02 | MHC.OFFVIS ---
Vital Signs 06/27/25 09:02 Height 5 ft 7 in Weight 64.864 kg BMI 22.4 BP 142/80 H Blood Pressure Location Lt brachial Position Sitting Pulse 93 Pulse Source Pulse Oximeter Pulse Oximetry (%) 99 Oxygen Delivery Method Room Air Intake Visit Reasons: Cabenuva Shot Allergies latex (LATEX) Allergy (Unknown, Verified 05/07/25 09:28) UNK penicillin G Allergy (Unknown, Verified 05/07/25 09:28) Unknown penicillin V Allergy (Unknown, Verified 05/07/25 09:28) Hives Penicillins (PENICILLINS) Allergy (Unknown, Verified 05/07/25 09:28) HIVES Latex Adverse Reaction (Unknown, Uncoded 08/04/22 11:42) Unknown [facility] Medical History H/O osteomyelitis Insomnia Chronic renal disease, stage 3, moderately decreased glomerular filtration rate (GFR) between 30-59 mL/min/1.73 square meter Thrombocytopenia Allergic sinusitis Asthma HIV (human immunodeficiency virus infection) Physical Exam Vital Signs: Last Vital Signs Pulse 93 06/27/25 09:02 BP 142/80 H 06/27/25 09:02 Pulse Ox 99 06/27/25 09:02 Oxygen Delivery Method Room Air 06/27/25 09:02 BMI result Body Mass Index 22.4 Office Meds cabotegravir ER 600 mg/3 mL-rilpivirine ER 900 mg/3mL IM suspension,ER Performing Provider: Ana Hawkins MD Performing Location: [facility] Administered by: Lizette Vela RN on 06/27/25 11:23 Dose Route Admin Location Dispensed Lot Number Expiration Date [facility] Swabber 6 mL IM LG/RG 6 mL [id number] 12/08/26 96255-267-90 [employer] Total Dispensed Waste 6 mL 0 % Comments: Pt present for bi-monthly injections. Pt denies any concern with previous injections and tolerated injections well. Educated on signs and symptoms of infection and encouraged to call the office with any related questions or concerns, pt verbalized understanding. Follow-up scheduled in 8 weeks for next injections. Assessment & Plan Assessment & Plan (1) HIV (human immunodeficiency virus infection): Comment: He has no complaints He has viral load undetectable. Code(s): B20 - Human immunodeficiency virus [HIV] disease Category: Medical Qualifiers: HIV symptom status: currently asymptomatic, with history of HIV-related illness Qualified Code(s): B20 - Human immunodeficiency virus [HIV] disease Orders: Orders AMB Cabotegravir/Rilpivirine Injection - Patient Supplied Today B20 - Human immunodeficiency virus [HIV] disease Coding Diagnoses Currently asymptomatic HIV infection, with history of HIV-related illness B20 HIV symptom status: currently asymptomatic, with history of HIV-related illness
--- NOTE | 2025-06-27 11:47 | AM.OFFVISNUR ---
Vital Signs 06/27/25 09:02 Height 5 ft 7 in Weight 64.864 kg BMI 22.4 BP 142/80 H Blood Pressure Location Lt brachial Position Sitting Pulse 93 Pulse Source Pulse Oximeter Pulse Oximetry (%) 99 Oxygen Delivery Method Room Air Intake Visit Reasons: Cabenuva Shot Allergies latex (LATEX) Allergy (Unknown, Verified 05/07/25 09:28) UNK penicillin G Allergy (Unknown, Verified 05/07/25 09:28) Unknown penicillin V Allergy (Unknown, Verified 05/07/25 09:28) Hives Penicillins (PENICILLINS) Allergy (Unknown, Verified 05/07/25 09:28) HIVES Latex Adverse Reaction (Unknown, Uncoded 08/04/22 11:42) Unknown Nursing Note . Office Meds cabotegravir ER 600 mg/3 mL-rilpivirine ER 900 mg/3mL IM suspension,ER Performing Provider: Ana Hawkins MD Performing Location: [facility] Administered by: Lizette Vela RN on 06/27/25 11:23 Dose Route Admin Location Dispensed Lot Number Expiration Date [facility] Financial Business Analyst 6 mL IM LG/RG 6 mL GX2H 12/08/26 47561-170-38 [employer] Total Dispensed Waste 6 mL 0 % Comments: Pt present for bi-monthly injections. Pt denies any concern with previous injections and tolerated injections well. Educated on signs and symptoms of infection and encouraged to call the office with any related questions or concerns, pt verbalized understanding. Follow-up scheduled in 8 weeks for next injections. Assessment & Plan Assessment & Plan (1) HIV (human immunodeficiency virus infection): Comment: He has no complaints He has viral load undetectable. Code(s): B20 - Human immunodeficiency virus [HIV] disease Category: Medical Qualifiers: HIV symptom status: currently asymptomatic, with history of HIV-related illness Qualified Code(s): B20 - Human immunodeficiency virus [HIV] disease Orders: Orders AMB Cabotegravir/Rilpivirine Injection - Patient Supplied Today B20 - Human immunodeficiency virus [HIV] disease Coding Diagnoses Currently asymptomatic HIV infection, with history of HIV-related illness B20 HIV symptom status: currently asymptomatic, with history of HIV-related illness
== END 2025-06-27 09:40 | disposition home or self-care (01) ==
LOC: HO.HCC 08:54
DX: B20 Human immunodeficiency virus [HIV] disease (principal)

== ENCOUNTER → 2025-06-27 08:54 | Outpatient (BNVA) | payer BC, SELFPAY | DX: B20 Human immunodeficiency virus [HIV] disease (principal) | CPT/HCPCS: 96372; J0741 ==

== ENCOUNTER 2025-08-27 08:45 | Outpatient (AMB) | payer BC, SELFPAY ==
--- NOTE | 2025-08-27 09:01 | AM.OFFVISNUR ---
Vital Signs 08/27/25 09:05 Height 5 ft 7 in Weight 66.224 kg BMI 22.9 BP 122/70 Pulse 92 Pulse Oximetry (%) 97 Intake Visit Reasons: Cabenuva Shot Allergies latex (LATEX) Allergy (Unknown, Verified 08/27/25 09:06) UNK penicillin G Allergy (Unknown, Verified 08/27/25 09:06) Unknown penicillin V Allergy (Unknown, Verified 08/27/25 09:06) Hives Penicillins (PENICILLINS) Allergy (Unknown, Verified 08/27/25 09:06) HIVES Latex Adverse Reaction (Unknown, Uncoded 08/27/25 09:06) Unknown Office Meds cabotegravir ER 600 mg/3 mL-rilpivirine ER 900 mg/3mL IM suspension,ER Performing Provider: Ana Hawkins MD Performing Location: [facility] Administered by: Lizette Vela RN on 08/27/25 09:25 Dose Route Admin Location Dispensed Lot Number Expiration Date [facility] Crystal Machining Coordinator 6 mL IM RG/LG 6 mL [id number] 05/10/27 88400-719-74 [employer] Total Dispensed Waste 6 mL 0 % Comments: Pt present for bi-monthly injections. Pt denies any concern with previous injections and tolerated injections well. Educated on signs and symptoms of infection and encouraged to call the office with any related questions or concerns, pt verbalized understanding. Follow-up scheduled in 8 weeks for next injections. Assessment & Plan Assessment & Plan Orders: Orders AMB Cabotegravir/Rilpivirine Injection - Patient Supplied Today B20 - Human immunodeficiency virus [HIV] disease Coding
[2025-08-27 09:05] VITALS: BP 122/70; PULSE 92; O2SAT 97; BMI 22.9
--- NOTE | 2025-08-27 10:14 | AM.OFFVISNUR ---
Vital Signs 08/27/25 09:05 Height 5 ft 7 in Weight 66.224 kg BMI 22.9 BP 122/70 Pulse 92 Pulse Oximetry (%) 97 Intake Visit Reasons: Cabenuva Shot Allergies latex (LATEX) Allergy (Unknown, Verified 08/27/25 09:06) UNK penicillin G Allergy (Unknown, Verified 08/27/25 09:06) Unknown penicillin V Allergy (Unknown, Verified 08/27/25 09:06) Hives Penicillins (PENICILLINS) Allergy (Unknown, Verified 08/27/25 09:06) HIVES Latex Adverse Reaction (Unknown, Uncoded 08/27/25 09:06) Unknown Office Meds cabotegravir ER 600 mg/3 mL-rilpivirine ER 900 mg/3mL IM suspension,ER Performing Provider: Ana Hawkins MD Performing Location: [facility] Administered by: Lizette Vela RN on 08/27/25 09:25 Dose Route Admin Location Dispensed Lot Number Expiration Date [facility] Manager Cash 6 mL IM RG/LG 6 mL [id number] 05/10/27 43551-336-[address] [employer] Total Dispensed Waste 6 mL 0 % Comments: Pt present for bi-monthly injections. Pt denies any concern with previous injections and tolerated injections well. Educated on signs and symptoms of infection and encouraged to call the office with any related questions or concerns, pt verbalized understanding. Follow-up scheduled in 8 weeks for next injections. Assessment & Plan Assessment & Plan Orders: Orders AMB Cabotegravir/Rilpivirine Injection - Patient Supplied Today B20 - Human immunodeficiency virus [HIV] disease Coding
== END 2025-08-27 09:31 | disposition home or self-care (01) ==
LOC: HO.HCC 08:45
DX: B20 Human immunodeficiency virus [HIV] disease (principal)

== ENCOUNTER → 2025-08-27 08:45 | Outpatient (BNVA) | payer BC, SELFPAY | DX: B20 Human immunodeficiency virus [HIV] disease (principal) | CPT/HCPCS: 96372; J0741 ==